=== PATIENT | male | born 1970 | race Caucasian/White ===

== ENCOUNTER 2020-03-06 16:24 | Inpatient (IN) ==
[2020-03-06] MEDS ORDERED: ASPIRIN CHEW 324 MG PO STA (16:48)
--- NOTE | 2020-03-06 16:56 | Emergency Department Note ---
History of Present Illness General Chief complaint: Referred by Doctor Stated complaint: REF BY DOC Time Seen by Provider: 03/06/20 16:36 Source: patient and family (Sina who is at the bedside) Mode of arrival: ambulatory Limitations: no limitations History of Present Illness This patient was sent over from Dr. Pham, his commercial lending vice president office after failing a stress test according to the patient. He said around 7 weeks ago he had high blood pressure was started on antihypertensives about a month or so ago he started with chest tightness with exertion and thought it could be the medication. He did follow-up with his doctor who scheduled a stress test. He said last weekend heat when he was golfing he was constantly stopping to catch his breath which is not typical for him. He tells me on a stress test there is suggestion of an LAD lesion and he was sent here to be admitted for a cath tomorrow to be done by Dr. Rizzo. The patient is asymptomatic at present. He has no chest pain or shortness of breath. He is on no blood thinners. He does not take aspirin. He has no medication allergies with exception of tetanus. He has had no trauma or injury. No COVID exposure or symptoms known. No cough or fever or body aches. Home Medications Home Medications Medication Instructions Recorded Confirmed Type ascorbic acid (vitamin C) [Vitamin 500 mg PO QAM 03/06/20 03/06/20 History C] irbesartan 150 mg PO QAM 03/06/20 03/06/20 History multivitamin 1 tab PO QAM 03/06/20 03/06/20 History omeprazole 20 mg PO QAM 03/06/20 03/06/20 History Allergies Allergy/AdvReac Type Severity Reaction Status Date / Time Tetanus Vaccines and Toxoid AdvReac redness Verified 03/06/20 17:55 Past Med/Surg History Medical History HLD (hyperlipidemia) HTN (hypertension) (Acute) Prediabetes Family History Father Hypertension Mother Breast cancer Hypertension Social History Feels Safe at Home: Yes Smoking Status: Current some day smoker Immunizations: Past medical history: Increased cholesterol and hypertension. Denies known cardiac disease or diabetes. Family history: Both parents have hypertension. No cardiac disease known in the family Social history. He smokes cigars occasionally. He drinks about 3 beers an evening. Denies drug use. 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 Review of Systems A total of 10 systems reviewed and were otherwise negative Physical Exam Vital Signs Vital Signs - 24 hr 03/06/20 16:31 03/06/20 16:50 03/06/20 17:00 Temperature 36.8 C Temperature Source Oral Pulse Rate 63 61 Pulse Rate [Apical] 63 Pulse Rate from SpO2 Sensor Respiratory Rate 17 20 Respiratory Effort / Characteristics Non-Labored Respiratory Depth Normal Blood Pressure 163/93 H 133/88 Blood Pressure [Right Arm] 153/94 H Blood Pressure Mean 116 93 Blood Pressure Mean [Right Arm] 113 Pulse Oximetry 96 97 96 Oxygen Delivery Method Room Air Room Air Sepsis Recent Fever Within 48 Hours No Sepsis New/Unexplained Change in Mental Status No Sepsis Action Taken by Nursing No Action Required 03/06/20 17:04 03/06/20 17:30 03/06/20 17:40 Temperature Temperature Source Pulse Rate 65 67 Pulse Rate [Apical] 79 Pulse Rate from SpO2 Sensor 66 Respiratory Rate 18 17 16 Respiratory Effort / Characteristics Respiratory Depth Blood Pressure 156/85 H Blood Pressure [Right Arm] 133/88 Blood Pressure Mean 103 Blood Pressure Mean [Right Arm] 103 Pulse Oximetry 96 94 97 Oxygen Delivery Method Room Air Room Air Sepsis Recent Fever Within 48 Hours Sepsis New/Unexplained Change in Mental Status Sepsis Action Taken by Nursing 03/06/20 17:50 03/06/20 18:00 03/06/20 18:12 Temperature Temperature Source Pulse Rate 59 L 60 Pulse Rate [Apical] 57 L Pulse Rate from SpO2 Sensor 58 L Respiratory Rate 20 21 18 Respiratory Effort / Characteristics Respiratory Depth Blood Pressure 141/93 H Blood Pressure [Right Arm] 141/93 H Blood Pressure Mean 100 Blood Pressure Mean [Right Arm] 109 Pulse Oximetry 96 95 97 Oxygen Delivery Method Sepsis Recent Fever Within 48 Hours Sepsis New/Unexplained Change in Mental Status Sepsis Action Taken by Nursing 03/06/20 18:30 03/06/20 18:40 Temperature Temperature Source Pulse Rate 58 L 63 Pulse Rate [Apical] Pulse Rate from SpO2 Sensor 64 Respiratory Rate 21 14 Respiratory Effort / Characteristics Respiratory Depth Blood Pressure 155/84 H Blood Pressure [Right Arm] Blood Pressure Mean 98 Blood Pressure Mean [Right Arm] Pulse Oximetry 97 Oxygen Delivery Method Sepsis Recent Fever Within 48 Hours Sepsis New/Unexplained Change in Mental Status Sepsis Action Taken by Nursing General: Well developed well nourished middle-age male who appears in no acute distress, breathing comfortably on room air. Normal speech HEENT: Normal cephalic atraumatic. Pupils are equal round and reactive to light. Sclera anicteric. Extraocular movements are intact. Oropharynx is pink with moist mucous membranes. No swelling of the mouth lips or tongue. Neck: Supple with a midline trachea. No meningeal signs or stiffness, no JVD or bruits. No Stridor. Chest: Clear to auscultation bilaterally. No wheezes or rhonchi. No increased work of breathing. Heart: Regular rate and rhythm without murmurs or gallops. Abdomen: Soft nontender, nondistended without rebound guarding or rigidity. Extremities: No cyanosis clubbing or edema. No calf tenderness or assymetry Spine/Back. Non tender to palpation. No CVA tenderness Skin: Good turgor without rashes. Neurologic exam: Cranial nerves two through 12 are intact. Motor and sensation are intact and symmetrical throughout. Course Administered Medications Discontinued Medications Aspirin (Aspirin) 324 mg PO NOW STA Stop: 03/06/20 16:49 Last Admin: 03/06/20 17:03 Dose: 324 mg Documented by: [id number] Medical Decision Making Differential Diagnosis Acute coronary syndrome, cardiac disease, arrhythmia, CHF, infection, electrolyte or metabolic abnormal Medical Records Attestation: I reviewed the patient's medical records. Home Medications Current Medication List: was personally reviewed by wa Laboratory Data Attestation: I reviewed the patient's lab results. Result diagrams: 03/06/20 16:50 03/06/20 16:50 Lab Results 03/06/20 03/06/20 03/06/20 Range/Units 16:50 16:50 16:50 WBC 9.56 (4.8-10.8) K/uL RBC 4.92 (4.7-6.1) M/uL Hgb 15.1 (14.0-18.0) g/dL Hct 43.4 (42-52) % MCV 88.2 (80-100) fL MCH 30.7 (25-34) pg MCHC 34.8 (32-36) g/dL RDW Std Deviation 41.0 (36.4-46.3) fL RDW Coeff of Jun 12.9 (11.5-14.5) % Plt Count 228 (130-400) K/uL MPV 9.6 (7.4-10.4) fL Immature Gran % (Auto) 0.3 % Neut % (Auto) 54.9 % Lymph % (Auto) 34.3 % [place] % (Auto) 7.5 % Eos % (Auto) 2.6 % Baso % (Auto) 0.4 % Neut # (Auto) 5.24 (1.4-6.5) K/uL Lymph # (Auto) 3.28 (1.2-3.4) K/uL [place] # (Auto) 0.72 H (0.11-0.59) K/uL Eos # (Auto) 0.25 (0-0.5) K/uL Baso # (Auto) 0.04 (0-0.2) K/uL Immature Gran # (Auto) 0.03 H (0.00-0.02) K/uL PT 10.7 (9.0-12.0) Seconds INR 1.0 (0.9-1.1) APTT 25.5 (21.0-31.0) Seconds PTT Ratio 0.9 Sodium 138 (136-145) mmol/L Potassium 3.9 (3.5-5.1) mmol/L Chloride 107 (98-107) mmol/L Carbon Dioxide 26 (21-32) mmol/L Anion Gap 6.0 (3-11) BUN 18 (7-18) mg/dl Creatinine 1.42 H (0.6-1.4) mg/dl Est Cr Clr Drug Dosing 78.0 ml/min Est GFR ( Amer) 65.8 Est GFR (Non-Af Amer) 56.8 BUN/Creatinine Ratio 12.4 (10-20) Glucose 100 H (70-99) mg/dl Calcium 8.9 (8.5-10.1) mg/dl Total Bilirubin 0.4 (0.2-1) mg/dl AST 35 (15-37) U/L ALT 97 H (12-78) U/L Alkaline Phosphatase 66 (45-117) U/L Troponin I 0.045 (0-0.045) ng/ml Total Protein 7.9 (6.4-8.2) gm/dl Albumin 3.9 (3.4-5.0) gm/dl Globulin 4.0 (2.5-4.0) gm/dl Albumin/Globulin Ratio 1.0 (0.9-2) Lipase 156 (73-393) U/L Imaging Data Attestation: I personally reviewed and interpreted this imaging study as follows: Radiologist's Impression: XR chest 1V portable CLINICAL HISTORY: Atypical chest pain. Preop chest. COMPARISON STUDY: No previous studies for comparison. FINDINGS: The cardiac and mediastinal contours are normal. There is no evidence of focal pulmonary consolidation. There is no evidence of failure. No pleural effusions are visualized.[ IMPRESSION: No active disease in the chest. ECG Data Attestation: I personally reviewed and interpreted this ECG as follows: Indication: + chest pain Rate (beats per minute): 64 Rhythm: + normal sinus ECG Intervals/blocks: + Normal QRS, + Normal QT and + Normal PA ECG [place]: + Normal ECG ST segments: + Normal ST segments ECG Findings: no PACs and no PVCs Comparison ECG Date: no prior available Blood Pressure Blood Pressure Findings: Elevated blood pressure Blood Pressure Disposition: elevated BP felt to be situational MDM Narrative This patient was sent over from the commercial lending vice president office after having a positive stress test, he was sent here for admission. He is asymptomatic upon arrival and is stable vital signs. His EKG here shows no ischemic changes or ectopy with no old ones for available for comparison. he was given aspirin 324 mg chewable. Chest x-ray and multiple blood testing was obtained. Chest x-ray does not suggest congestive heart failure, pneumonia, or pneumothorax. His troponin is not elevated. He has no significant electrolyte or metabolic abnormalities with exception of creatinine is borderline at 1.4. He has remained stable. Dr. Rene Rizzo did see him in the emergency department and he will be admitted/observed to have cardiac catheterization done tomorrow. Continuous cardiac monitoring: An order was placed in the computer. Due to his cardiac history he was placed on a continuous department director and was noted to be in normal sinus rhythm with a rate of 63. Impression & Plan Crescendo angina, Abnormal stress echocardiography, HTN (hypertension), Chest pain Discharge Plan Visit Data Chief Complaint: Referred by Doctor Stated Complaint: REF BY DOC ED Provider: Vernon Quintanilla Discharge Problem: Crescendo angina, Abnormal stress echocardiography, HTN (hypertension), Chest pain Forms Stand Alone Forms: [facility] [employer] Prescriptions Prescriptions: No Action irbesartan 150 mg Tablet 150 mg PO QAM RF: 0 omeprazole 20 mg Capsule,Delayed Release(Dr/Ec) 20 mg PO QAM RF: 0 ascorbic acid (vitamin C) [Vitamin C] 500 mg Tablet,Chewable 500 mg PO QAM RF: 0 multivitamin Tablet,Chewable 1 tab PO QAM RF: 0 Discharge Problem: HTN (hypertension) Qualifiers: Hypertension type: unspecified Qualified Code(s): I10 - Essential (primary) hypertension Chest pain Qualifiers: Chest pain type: other chest pain Qualified Code(s): R07.89 - Other chest pain
[2020-03-06 17:02] LABS: Basophils # (auto) 0.04 K/uL (0-0.2); Basophils % (auto) 0.4 %; Eosinophils # (auto) 0.25 K/uL (0-0.5); Eosinophils % (auto) 2.6 %; Hematocrit (blood only) 43.4 % (42-52); Hemoglobin 15.1 g/dL (14.0-18.0); Immature Granulocytes # (auto) 0.03 K/uL (0.00-0.02); Immature Granulocytes % (auto) 0.3 %; Lymphocytes # (auto) 3.28 K/uL (1.2-3.4); Lymphocytes % (auto) 34.3 %; Mean Corpuscular Hemoglobin 30.7 pg (25-34); Mean Corpuscular Hgb Conc 34.8 g/dL (32-36); Mean Corpuscular Volume 88.2 fL (80-100); Mean Platelet Volume 9.6 fL (7.4-10.4); Monocytes # (auto) 0.72 K/uL (0.11-0.59); Monocytes % (auto) 7.5 %; Neutrophils # (auto) 5.24 K/uL (1.4-6.5); Neutrophils % (auto) 54.9 %; Platelet Count 228 K/uL (130-400); RDW Coefficient of Variation 12.9 % (11.5-14.5); Red Blood Count 4.92 M/uL (4.7-6.1); White Blood Count 9.56 K/uL (4.8-10.8)
[2020-03-06 17:13] LABS: Partial Thromboplastin Ratio 0.9; Partial Thromboplastin Time 25.5 Seconds (21.0-31.0); Prothrombin Time 10.7 Seconds (9.0-12.0)
[2020-03-06 17:18] LABS: Albumin Level 3.9 gm/dl (3.4-5.0); BUN Creatinine Ratio 12.4 (10-20); Calcium 8.9 mg/dl (8.5-10.1); Est GFR (African American) 65.8; Est GFR (Non-African American) 56.8; Potassium 3.9 mmol/L (3.5-5.1)
[2020-03-06 17:22] LABS: Bilirubin,Total 0.4 mg/dl (0.2-1); Total Protein 7.9 gm/dl (6.4-8.2); Troponin I 0.045 ng/ml (0-0.045)
--- NOTE | 2020-03-06 17:33 | XRay Report ---
XR chest 1V portable CLINICAL HISTORY: Atypical chest pain. Preop chest. COMPARISON STUDY: No previous studies for comparison. FINDINGS: The cardiac and mediastinal contours are normal. There is no evidence of focal pulmonary co nsolidation. There is no evidence of failure. No pleural effusions are visualized.[ IMPRESSION: No active disease in the chest. ACT 112: Negative or not required by law. Electronically signed by: Marcus Sosa M.D. 03/06/2020 5:32 PM
--- NOTE | 2020-03-06 17:50 | Cardiology Consultation ---
Date of Consultation March 06, 2020 Assessment & Plan (1) Abnormal stress echocardiography: (2) Crescendo angina: (3) HTN (hypertension): (4) Prediabetes: Please see outpatient consult on chart for Dr. Pham. Patient referred with symptoms consistent with crescendo angina and abnormal st ress testing. Currently asymptomatic at rest and no prior rest symptom . EKG normal Plan: Patient scheduled for diagnostic cardiac catheterization in a.m. Aspirin administered. Procedure and risks explained in detail to the patient informed consent will be obtained. IV hydration ordered to be given at midnight History of Present Illness Reason for Consultation: Abnormal stress test crescendo chest discomfort History of Present Illness Patient is a 49-year-old male with issues as follows 1. Unstable angina with a markedly positive exercise stress echocardiogram for ischemia in the LAD territory 03/06/2020 2. Uncontrolled hypertension 3. Dyslipidemia 4. Prediabetes Patient carries no prior history of cardiac disease but recently presented with symptoms of exertional chest pressure and pain in subset was referred for stress testing. He notes exercise capacity is dramatically decreased over the past several weeks. Stress test was positive for stress-induced ischemia in LAD distribution at modest level workload with reproduction of symptoms. Blood pressure response was markedly hypertensive Patient referred for anticipated cardiac catheterization in a.m. He denies prior history of myocardial infarction or congestive heart failure no history of valvular heart disease. No history of TIA or stroke. No difficulties with sedation or anesthesia in the past. No difficulty with swallowing or taking medications. No bleeding difficulties. No anticipated surgeries. No fevers chills cough. No unexplained infections. Weight and appetite are generally stable Allergies Allergy/AdvReac Type Severity Reaction Status Date / Time Tetanus Vaccines and Toxoid AdvReac redness Verified 03/06/20 17:37 Home Medications Home Medications Medication Instructions Recorded Confirmed Type irbesartan 150 mg PO DAILY 03/06/20 03/06/20 History omeprazole 20 mg PO DAILY 03/06/20 03/06/20 History Patient History Social History Feels Safe at Home: Yes Smoking Status: Current some day smoker Physical Exam Constitutional: WD/WN, vitals as above Eyes: PERRL, conjunctivae normal, anicteric sclerae ENMT: external ear and nose normal, oropharynx normal Neck: trachea midline, no thyromegaly Respiratory: normal respiratory effort, lungs clear to auscultation Cardiovascular: Rate/Rhythm: regular rate and regular rhythm Heart Sounds: normal S1 and normal S2; no gallop and no murmur Palpation: normal PMI Vessels: normal carotid upstroke and radial pulses present; no JVD and no carotid bruit Extremities: no edema Gastrointestinal (Abdomen): normal bowel sounds, soft, nontender, no hepatosplenomegaly Musculoskeletal: no cyanosis or clubbing, extremities motor strength 5/5 Skin: no rashes, warm and dry Neurologic: PERRL, EOMI, accommodation nl, no face palsy, no dysarthria Psychiatric: A+Ox3, euthymic affect Results & Data ([facility]) Vital Signs (Past 12 Hours) Vital Signs Temp Pulse Pulse Resp BP BP Pulse Ox 03/06/20 17:04 79 18 133/88 96 03/06/20 16:50 63 153/94 H 97 03/06/20 16:31 36.8 C 63 17 163/93 H 96 Diagnostic Findings Stress echocardiography 03/06/2020 The primary indication after review was deemed appropriate and the examination was performed. The stress echo is positive for inducible ischemia. No inducible arrhythmias. Testing halted due to reproduction of chest pain 01/29. Inducible hypokinesis in the LAD territory on stress. Hypertensive blood pressure response to exercise. Below average exercise tolerance. At rest, normal LV chamber size with mild concentric LVH. Normal LV systolic function without regional wall motion abnormality, EF 55 to 60%. Grade 1 diastolic dysfunction. No significant valvular pathology. The aortic root is normal sized. The proximal ascending thoracic aorta is mildly enlarged.
--- NOTE | 2020-03-06 19:00 | History & Physical Report ---
Date of Service March 06, 2020 Assessment & Plan (1) Abnormal stress echocardiography: (2) Crescendo angina: This is a 49-year-old male who has significant past medical history of HTN, HLD and pre-DM who presents to ED at the referral of cardiology Dr. Pham due to abnormal stress echo. Pt received 325mg ASA in ED. EKG w/o ischemic change. Trop detectable at 0.045. Seen and evaluated by cardiology. To undergo diagnostic cath in am. admit to PCU NPO after midnight monitor on tele initiate ASA 81mg, atorvastatin 80mg daily and metoprolol tartrate 25mg bid per Dr. Pham outpt consultation cardiology on board ekg prn with chest pain Covid 19 pre op testing ordered (3) HTN (hypertension): blood pressure mildly elevated in ED continue irbesartan (4) Elevated serum creatinine: unknown baseline bun/cr 18 and 1.42 today IV hydration monitor bmp (5) Prediabetes: Last A1C 5.8 02/27/2020 encourage lifestyle and diet modifications glucose 100, monitor fasting bsg (6) DVT prophylaxis: SCD/TEDS Disposition: admit to PCU Follow up: PCP Dr. Berry upon discharge Pt was seen and examined in collaboration with Dr. Dougherty, please see addendum History of Present Illness Chief Complaint: Referred by Dr. Pham due to abnormal stress test. Primary Care Provider: Cristopher Pham, This is a 49-year-old male who has significant past medical history of HTN, HLD and pre-DM who presents to ED at the referral of cardiology Dr. Pham due to abnormal stress echo. Patient was seen and evaluated in cardiology clinic today and underwent stress testing. He developed anginal symptoms at 4 minutes Sorin protocol and echocardiogram revealed ischemia in LAD territory. He was referred to ED for admission for planned cardiac catheterization in a.m. for diagnostic purposes. He states over the last 3 to 4 weeks he has noticed exertional chest discomfort and shortness of breath. Chest discomfort is substernal, nonradiating, resolves with rest within approximately 10 minutes, made worse with exertion. He states last week he was golfing and even used a golf cart and even minimal exertion on the golf course caused him to feel discomfort. [place]it [place] family history of hypertension but denies any premature coronary artery disease for heart disease in family. He currently denies any fever, chills, sweats, lightheadedness, dizziness, syncope, chest pain, shortness, palpitations, nausea, vomiting, abdominal pain, change in bowel or urinary habits. He denies any known exposure to COVID-19 denies any loss of taste or smell. His fiance is at bedside. They were to get in 1 week in [place]. In ED patient remained hemodynamically stable. EKG was without ischemic change. Blood pressure 155/84. CBC relatively unremarkable, CMP revealed mildly elevated creatinine 1.42, glucose 100, ALT 97, troponin detectable at 0.045. Chest x-ray with no acute abnormality. He did receive ASA 325 in ED. Allergies Allergy/AdvReac Type Severity Reaction Status Date / Time Tetanus Vaccines and Toxoid AdvReac redness Verified 03/06/20 17:55 Home Medications Home Medications Medication Instructions Recorded Confirmed Type ascorbic acid (vitamin C) [Vitamin 500 mg PO QAM 03/06/20 03/06/20 History C] irbesartan 150 mg PO QAM 03/06/20 03/06/20 History multivitamin 1 tab PO QAM 03/06/20 03/06/20 History omeprazole 20 mg PO QAM 03/06/20 03/06/20 History Past Med/Surg History Medical History HLD (hyperlipidemia) HTN (hypertension) (Acute) Prediabetes Surgical History (Updated 03/06/20 @ 18:59 by Palmira Durham PA-C) History of ankle surgery right History of repair of rotator cuff Family History Father Hypertension Mother Breast cancer Hypertension Social History Preferred Language: Bahraini Communication Ability: Effective Beliefs That Will Affect Care: None marital status: Current Living Situation: Spouse current occupational status: employed Other Information That Helps Us Care for You: No Feels Safe at Home: Yes Safety Concerns: Feels Safe At This Time Smoking Status: Light tobacco smoker Tobacco Type: cigars ; Cigarettes Per Day: smokes cigar few times a week ; Second Hand Exposure: No ; Tobacco Cessation Education Requested by Patient: No Hx Alcohol Use: Yes Alcohol type: beer Hx Substance Use: No Review of Systems Review of Systems: All systems reviewed & are unremarkable except as noted in HPI & below Physical Exam Physical Exam: Constitutional: WD/WN, vitals as above, NAD, sitting up in bed, pleasant, conversing easily Head: Normocephalic, Atraumatic Eyes: PERRL, conjunctivae normal, anicteric sclerae ENMT: external ear and nose normal, oropharynx normal Neck: trachea midline, no thyromegaly normal visual inspection Respiratory: normal respiratory effort, lungs clear to auscultation, no wheeze, rales, rhonchi. Normal insp/exp effort, no accessory muscle use Cardiovascular: RRR, no murmur, no edema Vessels: no JVD or carotid bruit Chest: normal inspection of chest Abdomen: normal bowel sounds, soft, nontender, no hepatosplenomegaly Musculoskeletal: no cyanosis or clubbing, extremities motor strength 5/5 Skin: no rashes, warm and dry normal turgor Neurologic: PERRL, EOMI, accommodation nl, no face palsy, no dysarthria CN's II-XI intact bilaterally and moves all extremities Psychiatric: A+Ox3, euthymic affect Lymphatic: no cervical or axillary lymphadenopathy : deferred Results & Data Results & Data ([facility]) Vital Signs (Past 12 Hours) Vital Signs Temp Pulse Pulse Resp BP BP Pulse Ox 03/06/20 18:40 63 14 97 03/06/20 18:30 58 L 21 155/84 H 03/06/20 18:12 57 L 18 141/93 H 97 03/06/20 18:00 60 21 141/93 H 95 03/06/20 17:50 59 L 20 96 03/06/20 17:40 67 16 97 03/06/20 17:30 65 17 156/85 H 94 03/06/20 17:04 79 18 133/88 96 03/06/20 17:00 61 20 133/88 96 03/06/20 16:50 63 153/94 H 97 03/06/20 16:31 36.8 C 63 17 163/93 H 96 Laboratory Results Short CBC 03/06/20 03/06/20 Range/Units 16:50 16:50 WBC 9.56 (4.8-10.8) K/uL Hgb 15.1 (14.0-18.0) g/dL Hct 43.4 (42-52) % Plt Count 228 (130-400) K/uL Creatinine 1.42 H (0.6-1.4) mg/dl BMP 03/06/20 16:50 Sodium 138 Potassium 3.9 Chloride 107 Carbon Dioxide 26 BUN 18 Creatinine 1.42 H Glucose 100 H Calcium 8.9 Cardiac Enzymes 03/06/20 Range/Units 16:50 Troponin I 0.045 (0-0.045) ng/ml Liver Function 03/06/20 Range/Units 16:50 Total Bilirubin 0.4 (0.2-1) mg/dl AST 35 (15-37) U/L ALT 97 H (12-78) U/L Alkaline Phosphatase 66 (45-117) U/L Albumin 3.9 (3.4-5.0) gm/dl Diagnostic Findings CXR: IMPRESSION: No active disease in the chest. Medications Administered Discontinued Medications Aspirin (Aspirin) 324 mg PO NOW STA Stop: 03/06/20 16:49 Last Admin: 03/06/20 17:03 Dose: 324 mg Documented by: [id number] ECG Rate (beats per minute): 64 Rhythm: normal sinus Code Status & VTE Plan Code Status Full Code VTE Prophylaxis Plan VTE Prophylaxis will be ordered: Yes Supervising Physician Co-Signing Physician Notes Patient is a 49-year-old male with history of uncontrolled hypertension, predi abetes, hyperlipidemia and other medical problems presents after having an abnormal stress test by his security and privacy consultant today. Patient currently denies any chest pain, shortness of breath, dizziness, nausea. He states having chest pain associated with shortness of breath on exertion. His initial troponins are negative. Please review HPI for complete details of presentation. On exam patient is well-built and nourished, no apparent distress, normocephalic atraumatic, lungs are clear to auscultation, S1-S2, no murmur, abdomen soft, nontender, normal bowel sounds, grossly no focal neurological deficits, trace pedal edema noted. Patient is admitted for management of angina, r/o acs. Plan for cardiac catheterization in the morning. Agree with aspirin, Lipitor, metoprolol. Cardiology consulted. Blood pressure remains elevated--usual as per patient. Need to adjust medications to control blood pressure. Monitor renal function. I personally reviewed the record. Patient is interviewed and examined at bedside. Patient's care is coordinated with Palmira Durham PA-C. Please refer to the documentation above for details of patient's presentation and for discussion of other issues. (1) HTN (hypertension) Hypertension type: unspecified Qualified Code(s): I10 - Essential (primary) hypertension
[2020-03-06] MEDS ORDERED: ACETAMINOPHEN 325 MG TAB PO PRN (19:31)
[2020-03-06] MEDS ORDERED: MAGNESIUM HYDROXIDE SUSP 30 ML UDC PO PRN (19:31)
[2020-03-06] MEDS ORDERED: POLYETHYLENE (MIRALAX) 17 GM PACK PO PRN (19:31)
[2020-03-06] MEDS ORDERED: ONDANSETRON INJ 2 MG/ML 2 ML VIAL IV PRN (19:31)
[2020-03-06] MEDS ORDERED: NITROGLYCERIN SL 0.4 MG/TAB TAB SL PRN (19:31)
[2020-03-06] MEDS ORDERED: ALUMINUM/MAGNESIUM SUSP 30 ML UDC PO PRN (19:31)
[2020-03-06] MEDS ORDERED: SODIUM CHLORIDE 0.9% 1000ML 1,000 ML IV SCH (19:31)
[2020-03-06] MEDS: METOPROLOL TARTRATE 25 MG TAB PO SCH (21:03)
[2020-03-06] MEDS: HEPARIN SOD 5,000 UNIT/0.5 ML VIAL SQ SCH (22:57)
[2020-03-07] MEDS ORDERED: SODIUM CHLORIDE 0.9% 1000ML 1,000 ML IV SCH ×2
[2020-03-07 04:59] LABS: Hematocrit (blood only) 41.2 % (42-52); Hemoglobin 14.4 g/dL (14.0-18.0); Mean Corpuscular Hemoglobin 31.2 pg (25-34); Mean Corpuscular Volume 89.2 fL (80-100); Mean Platelet Volume 9.9 fL (7.4-10.4); Platelet Count 204 K/uL (130-400); RDW Coefficient of Variation 12.9 % (11.5-14.5); RDW Standard Deviation 41.6 fL (36.4-46.3); Red Blood Count 4.62 M/uL (4.7-6.1); White Blood Count 9.08 K/uL (4.8-10.8)
[2020-03-07 05:20] LABS: Alanine Aminotransferase 83 U/L (12-78); Albumin Level 3.4 gm/dl (3.4-5.0); Aspartate Aminotransferase 28 U/L (15-37); BUN Creatinine Ratio 13.6 (10-20); Blood Urea Nitrogen 18 mg/dl (7-18); Calcium 8.6 mg/dl (8.5-10.1); Carbon Dioxide 29 mmol/L (21-32); Chloride 110 mmol/L (98-107); Creatinine Clr Calc Pharmacy 82.8 ml/min; Est GFR (African American) 72.5; Est GFR (Non-African American) 62.6; Glucose 93 mg/dl (70-99); Magnesium 2.4 mg/dl (1.8-2.4); Potassium 4.2 mmol/L (3.5-5.1); Sodium 143 mmol/L (136-145)
[2020-03-07 05:23] LABS: Albumin Globulin Ratio 0.9 (0.9-2); Alkaline Phosphatase 58 U/L (45-117); Bilirubin,Total 0.4 mg/dl (0.2-1); Chol HDL Ratio 7; Cholesterol 184 mg/dl (0-200); Globulin 3.6 gm/dl (2.5-4.0); HDL Cholesterol 27 mg/dl; LDL Cholesterol Calculated 82 mg/dl; Triglycerides 374 mg/dl (0-150); Troponin I < 0.015 ng/ml (0-0.045); VLDL Cholesterol 75 mg/dl
[2020-03-07] MEDS: HEPARIN SOD 5,000 UNIT/0.5 ML VIAL SQ SCH ×2 (05:58→14:59)
[2020-03-07 06:18] LABS: Estimated Average Glucose 117 mg/dl; Hemoglobin A1C 5.7 % (4.5-5.6)
[2020-03-07] MEDS: ATORVASTATIN 40 MG TAB PO SCH (08:23)
[2020-03-07] MEDS: PANTOprazole 40 MG TAB PO SCH (08:23)
[2020-03-07] MEDS: ASPIRIN 81 MG ECTAB PO SCH (08:23)
[2020-03-07] MEDS: METOPROLOL TARTRATE 25 MG TAB PO SCH ×2 (08:23→19:41)
[2020-03-07] MEDS ORDERED: IRBESARTAN 150 MG TAB PO SCH (09:00)
[2020-03-07] MEDS ORDERED: NiCARDipine HCL INJ 2.5 MG/ML 10 ML AMP ONE (10:04)
[2020-03-07] MEDS ORDERED: HEPARIN (PORCINE) 1000 UNIT/ML 10 ML (CATH LAB USE ONLY) ONE ×2 (10:04→11:10)
[2020-03-07] MEDS ORDERED: MIDAZOLAM HCL 1 MG/ML 2ML VIAL ONE ×2 (10:05→10:51)
[2020-03-07] MEDS ORDERED: NITROGLYCERIN/D5W 100MCG/ML 20ML SYR ONE (10:05)
[2020-03-07] MEDS ORDERED: fentaNYL citrate 100 MCG/2 ML VIAL ONE (10:05)
--- NOTE | 2020-03-07 11:03 | Pre Anesthesia Assessment ---
Date of Service March 07, 2020 Pre Sedation Assessment Vital Signs Temp Pulse Pulse Resp BP BP Pulse Ox 03/07/20 09:30 53 L 14 03/07/20 09:00 57 L 17 03/07/20 08:30 61 11 L 03/07/20 08:02 59 L 11 L 160/88 H 99 03/07/20 08:00 59 L 12 03/07/20 07:30 53 L 4 L 03/07/20 07:00 50 L 0 L 03/07/20 06:45 54 L 4 L 03/07/20 04:00 36.7 C 51 L 17 148/88 H 96 03/07/20 00:00 53 L 03/06/20 23:06 37 C 61 17 158/86 H 99 03/06/20 19:30 37 C 56 L 16 160/101 H 96 03/06/20 19:00 69 20 138/96 03/06/20 18:40 63 14 97 03/06/20 18:30 58 L 21 155/84 H 03/06/20 18:12 57 L 18 141/93 H 97 03/06/20 18:00 60 21 141/93 H 95 03/06/20 17:50 59 L 20 96 03/06/20 17:40 67 16 97 03/06/20 17:30 65 17 156/85 H 94 03/06/20 17:04 79 18 133/88 96 03/06/20 17:00 61 20 133/88 96 03/06/20 16:50 63 153/94 H 97 03/06/20 16:31 36.8 C 63 17 163/93 H 96 Cardiovascular RRR, no murmur, no edema Respiratory normal respiratory effort, lungs clear to auscultation Pre-Sedation Airway Assessment Smoking Status: Light tobacco smoker Hx Sleep Apnea: No Short, Thick Neck: No Oral Cavity: + WNL Mallampati Class: IV ASA: ASA3 NPO Status Date of Last Intake of Fluids: 03/07/20 Time of Last Intake of Fluids: 08:00 Last Oral Intake of Fluids Comment: sip with meds Date of Last Intake of Solid Food: 03/06/20 Time of Last Intake of Solid Foods: 18:00 Procedure Planning Contraindications for Sedation: none Current Medications Reviewed: Yes Notes The planned sedation has been discussed with the patient. Informed Consent was obtained. I have identified the patient, determined the appropriateness of sedation and have assessed the patient immediately prior to the procedure. All medicine(s) and interventions are by my order.
--- NOTE | 2020-03-07 11:12 | Cardiac Catheterization ---
Cardiac Cath Procedure Brief Procedure Date March 07, 2020 Pre-Procedure Diagnosis Pre-Procedure Diagnosis: Angina and Positive Stress Test AUC Score AUC Score: 8 Post-Procedure Diagnosis Post-Procedure Diagnosis: Severe CAD (Single-vessel) Procedure(s) Performed Procedure(s) Performed: Coronary Angiography and Left Heart Cath Slubber Machine Operator Rene Rizzo MD Estimated Blood Loss Estimated Blood Loss: <15cc Medication(s) Medication(s): Fentanyl (25 mcg IV), Heparin (5000 units IV), Lidocaine 1% (Local infiltration access site), Nicardipine (250 mcg intra-arterial after arterial sheath insertion) and Versed (1 mg IV) Preliminary Findings Impression: Right dominant coronary anatomy with single-vessel high-grade obstructive disease with complex 90% early mid LAD stenosis Coronary angiography Left main: Very Short and free of disease and calcification Left anterior descending: Type III in distribution giving rise to an early high diagonal branch, a large septal branch followed by a second diagonal branch at the end of its proximal third. Within the left understanding there is a discrete ulcerated 90% stenosis between the first and second diagonal branch with a 50% narrowing between the septal branch and second. Left circumflex: Nondominant consisting of a large obtuse marginal small posterior lateral branch. There is mild to moderate luminal irregularities only Right coronary artery: Dominant distribution. It gives rise to a sinoatrial branch at its origin to right ventricular branches in its midportion at the AV groove along posterior descending artery and a single posterior ventricular branch. There is mild luminal irregularities. Overall caliber of right coronary distribution is modest but no obstruction noted. LV angiography: Not performed. Hemodynamics LV EDP 24 Recommendations Recommendations: PCI without planned CABG Specimens Specimens: None Fluids (cc crystalloids) Fluids (cc crystalloids): 63 Anesthesia Start time: 1021, stop time 1048 Procedural Complication(s) None Disposition PCI same setting
[2020-03-07] MEDS ORDERED: TICAGRELOR 90 MG TAB PO ONE (11:18)
--- NOTE | 2020-03-07 11:20 | Post Anesthesia Assessment ---
Date of Service March 07, 2020 Post Sedation Assessment Vital Signs Temp Pulse Pulse Resp BP BP Pulse Ox 03/07/20 09:30 53 L 14 03/07/20 09:00 57 L 17 03/07/20 08:30 61 11 L 03/07/20 08:02 59 L 11 L 160/88 H 99 03/07/20 08:00 59 L 12 03/07/20 07:30 53 L 4 L 03/07/20 07:00 50 L 0 L 03/07/20 06:45 54 L 4 L 03/07/20 04:00 98.1 F 51 L 17 148/88 H 96 03/07/20 00:00 53 L 03/06/20 23:06 98.6 F 61 17 158/86 H 99 03/06/20 19:30 98.6 F 56 L 16 160/101 H 96 03/06/20 19:00 69 20 138/96 03/06/20 18:40 63 14 97 03/06/20 18:30 58 L 21 155/84 H 03/06/20 18:12 57 L 18 141/93 H 97 03/06/20 18:00 60 21 141/93 H 95 03/06/20 17:50 59 L 20 96 03/06/20 17:40 67 16 97 03/06/20 17:30 65 17 156/85 H 94 03/06/20 17:04 79 18 133/88 96 03/06/20 17:00 61 20 133/88 96 03/06/20 16:50 63 153/94 H 97 03/06/20 16:31 98.2 F 63 17 163/93 H 96 Recovery Score Activity: Moves 4 extremities Respiration: Deep Breath/Cough Circulation: +/-20% PreAnes Value Consciousness: Fully Awake Oxygen Saturation: O2 needed for >90% Discharge Sedation Level of Care: Fast Track Phase II Post Sedation Plan On clinical assessment, the patient appears to have tolerated the sedation without complications. Patient is recovering as anticipated. Patient will continue to be monitored by nursing and may be discharged when sedation discharge criteria are met per below protocol. Upon Completions of procedure up to 15 minutes continue every 5 minute vital signs and the P.A.R. score; then discharge to a Phase I or Fast Track to Phase II per the following guidelines: * Discharge Patient to appropriate Phase II area if PAR is 8 or greater or return to pre- procedure baseline. The post - procedure orders will be as directed. * If PAR score is less than 8 or not return to pre-procedure baseline then patient will follow Phase I monitoring till PAR is reached for Phase II. The Phase I may be done in procedure room or may call to secure a Phase I area. * If naloxone or flumazenil are used for reversal, hold in Phase I for continued monitoring from when last reversal dose was given for a minimum of 60 minutes or longer pending the nurse and/or physician discretion of patient condition before discharge to Phase II. Please call the Sedation Physician to re-evaluate and complete post-note for discharge to Phase II area. Do NOT discharge from procedure sedation or Phase 1 until post- sedation evaluation note is complete by procedure /sedation MD Sedation Discharge Instructions to be given to the patient at discharge to home.
--- NOTE | 2020-03-07 11:27 | Cardiac Catheterization ---
[facility] Data: Dish Machine Operator Cardiac Status Clinical evaluation leading to the procedure CAD Presenation: Unstable angina Anginal Classification: CCS III Heart Failure: No Cardiogenic Shock within 24 Hours: No Cardiac Arrest within 24 Hours: No Imaging Studies Past 6 Months: Yes Stress Studies Past 6 Months: Yes Stress Echocardiogram: Yes - Positive and Risk/Extent of Ischemia (High) Diagnostic Physicians Name: Zeke De Oliveira MD Status: Elective Closure Device Percutaneous Entry Location: Radial Closure Device: Radial Band Recommendations: PCI without planned CABG PCI Indication: + Stress Test and Unstable Angina Lesion Segment Name: Mid LAD Culprit Artery: Yes Stenosis Prior to Rx (%): 90 Chronic Total Occlusion: No IVUS: No FFR: No Pre-Procedure TAYA Flow: 3 Previously Treated Lesion: No Lesion Complexity: Non-High/Non-C Lesion Length (mm): 20 Thrombus Present: Yes Bifurcation Lesion: Yes Guidewire Across Lesion: Stenosis Post-Procedure (%): 0 Post-Procedure TAYA Flow: 3 Devices(s) Deployed: Yes Yes Intraprocedure Events Significant Disection: No Perforation: No Cardiac Cath Procedure Full Procedure Date March 07, 2020 Pre-Procedure Diagnosis Pre-Procedure Diagnosis: Acute Coronary Syndrome and Positive Stress Test AUC Score AUC Score: 8 Post-Procedure Diagnosis Post-Procedure Diagnosis: Severe CAD (Single-vessel) and Successful PCI Procedure(s) Performed Procedure(s) Performed: Drug Eluting Stent Block Feeder Zeke De Oliveira MD Digester(s) Nils Estimated Blood Loss Estimated Blood Loss: <15cc Medication(s) Medication(s): Fentanyl (25 mcg IV), Heparin (5000 units IV), Nicardipine (250 mcg intra-arterial after arterial sheath insertion), Nitroglycerin and Versed (1 mg IV) Medication(s): Ticagrelor Summary of Findings Indication: Unstable angina, high risk stress test Access: 6 Fr slender right radial artery Catheters: EBU 3.5 guide Findings: For full details of patient's coronary angiography please see cath report dictated by Dr. Rizzo. Briefly, patient found to have severe single vessel disease with diffuse, acute mid LAD disease up to 90% stenosis. Decision to proceed with PCI. -- PCI -- Antithrombotic therapy: Heparin, ticagrelor Procedure: Left main cannulated with EBU 3.5 guide BMW wire passed across lesion into distal vessel Mid LAD lesion predilated with 2.5 compliant balloon Dilated lesion stented with 3.0 x 30 mm [place] drug-eluting stent. Proximal stent landed just after takeoff of first diagonal and stent crossed takeoff of second diagonal. Stent post-dilated with 3.25 noncompliant balloon IC vasodilators administered for spasm Post procedure TAYA 3 flow, stent well expanded with minimal residual stenosis and no apparent cardiac complications. Arterial Closure: TR band Summary: 1. Successful PCI of mid LAD with single drug-eluting stent (3.0 x 30 mm [place]; postdilated with 3.25 NC). Recommendations: To PCU for continued monitoring Loaded with ticagrelor 180 mg in Dish Machine Operator Continue dual-antiplatelet therapy for at least 1 year Continue statin, and ASCVD risk factor modification Consult cardiac Rehab Hemodynamics Rest Ao:: 134/80/102 Final Ao: 104/67/91 LV: -- Recommendations Recommendations: PCI without planned CABG Specimens Specimens: None Radiation Exposure (mGy) 2634 Contrast (mls) 125 Fluids (cc crystalloids) Fluids (cc crystalloids): 100 Drains Drains: None Anesthesia Moderate Procedural Complication(s) None Disposition PCU I attest to the content of the Intraoperative Record and any orders documented therein. Any exceptions are noted below. [facility] Card Cath Procedure Codes Moderate Sedation Procedure 1: Sedation/Anesthesia: 41554 Mod Sedation by a different physician ;Init15 Min Child Age 5&Up Stenting Procedure 1: Cardiovascular Stent Procedures: 78426 Perc transcatheter placement of intracoronary stent(s), with ang PG Care Time/CCT Total # of Minutes Spent Total Time Spent with Patient: Total time spent is greater than 50% in coordination of care (as documented) at patient's floor/unit and/or counseling patient:
[2020-03-07] MEDS: SODIUM CHLORIDE 0.9% 1000ML 1,000 ML IV SCH ×2 (12:40→23:37)
--- NOTE | 2020-03-07 12:45 | Cardiology Progress Note ---
Date of Service March 07, 2020 Assessment & Plan (1) Single vessel coronary disease: Status post drug-eluting stent to left anterior descending with excellent initial result Dual antiplatelet therapy initiated with aspirin and Brilinta Would continue low-dose beta-esme Increase Avapro to 300 mg p.o. daily for further hypertension control Low HDL dyslipidemia present with treat with high-dose statin Discontinue tobacco use Patient would qualify for cardiac rehab We will maintain telemetry overnight (2) Abnormal stress echocardiography: (3) Crescendo angina: (4) HTN (hypertension): (5) Prediabetes: Please see outpatient consult on chart for Dr. Pham. Patient referred with symptoms consistent with crescendo angina and abnormal stress testing. Currently asymptomatic at rest and no prior rest symptom . EKG normal Plan: Patient scheduled for diagnostic cardiac catheterization in a.m. Aspirin administered. Procedure and risks explained in detail to the patient informed consent will be obtained. IV hydration ordered to be given at midnight Subjective Patient seen and examined both pre-and post cardiac catheterization. No cardiac symptoms overnight and tolerated cardiac catheterization and coronary intervention without difficulty. No current chest pains or discomfort. Blood pressures elevated since admission Review of Systems Review of Systems: All systems reviewed & are unremarkable except as noted in HPI & below Physical Exam Constitutional: WD/WN, vitals as above Eyes: PERRL, conjunctivae normal, anicteric sclerae ENMT: Mallampati Class: IV Neck: trachea midline, no thyromegaly Respiratory: normal respiratory effort, lungs clear to auscultation Cardiovascular: RRR, no murmur, no edema Rate/Rhythm: regular rate and regular rhythm Heart Sounds: normal S1 and normal S2; no gallop and no murmur Palpation: normal PMI Vessels: normal carotid upstroke and radial pulses present (Right radial access site healing well); no JVD and no carotid bruit Extremities: no edema Gastrointestinal (Abdomen): normal bowel sounds, soft, nontender, no hep atosplenomegaly Musculoskeletal: no cyanosis or clubbing, extremities motor strength 5/5 Skin: no rashes, warm and dry Neurologic: PERRL, EOMI, accommodation nl, no face palsy, no dysarthria Psychiatric: A+Ox3, euthymic affect Results & Data Vital Signs (Past 12 Hours) Vital Signs Temp Pulse Pulse Resp BP BP BP 03/07/20 12:32 60 16 165/96 H 03/07/20 12:30 62 13 03/07/20 12:27 66 20 165/96 H 03/07/20 12:15 65 20 03/07/20 12:11 64 16 129/88 03/07/20 12:08 36.9 C 136 H 18 136/85 03/07/20 12:00 56 L 13 03/07/20 11:56 59 L 19 136/85 03/07/20 11:51 58 L 19 137/85 03/07/20 11:40 56 L 18 03/07/20 11:25 54 L 18 140/81 03/07/20 09:45 55 L 18 03/07/20 09:30 53 L 14 03/07/20 09:00 57 L 17 03/07/20 08:30 61 11 L 03/07/20 08:02 59 L 11 L 160/88 H 03/07/20 08:00 59 L 12 03/07/20 07:30 53 L 4 L 03/07/20 07:00 50 L 0 L 03/07/20 06:45 54 L 4 L 03/07/20 04:00 36.7 C 51 L 17 148/88 H Pulse Ox 03/07/20 12:32 98 03/07/20 12:30 98 03/07/20 12:27 03/07/20 12:15 94 03/07/20 12:11 97 03/07/20 12:08 97 03/07/20 12:00 98 03/07/20 11:56 98 03/07/20 11:51 97 03/07/20 11:40 95 03/07/20 11:25 94 03/07/20 09:45 03/07/20 09:30 03/07/20 09:00 03/07/20 08:30 03/07/20 08:02 99 03/07/20 08:00 03/07/20 07:30 03/07/20 07:00 03/07/20 06:45 03/07/20 04:00 96 Laboratory Results Laboratory Results - last 24 hr 03/06/20 03/06/20 03/06/20 16:50 16:50 16:50 WBC 9.56 RBC 4.92 Hgb 15.1 Hct 43.4 MCV 88.2 MCH 30.7 MCHC 34.8 RDW Std Deviation 41.0 RDW Coeff of Jun 12.9 Plt Count 228 MPV 9.6 Immature Gran % (Auto) 0.3 Neut % (Auto) 54.9 Lymph % (Auto) 34.3 [place] % (Auto) 7.5 Eos % (Auto) 2.6 Baso % (Auto) 0.4 Neut # (Auto) 5.24 Lymph # (Auto) 3.28 [place] # (Auto) 0.72 H Eos # (Auto) 0.25 Baso # (Auto) 0.04 Immature Gran # (Auto) 0.03 H PT 10.7 INR 1.0 APTT 25.5 PTT Ratio 0.9 Activ Coag Time Kaolin Sodium 138 Potassium 3.9 Chloride 107 Carbon Dioxide 26 Anion Gap 6.0 BUN 18 Creatinine 1.42 H Est Cr Clr Drug Dosing 78.0 Est GFR ( Amer) 65.8 Est GFR (Non-Af Amer) 56.8 BUN/Creatinine Ratio 12.4 Glucose 100 H Estimat Average Glucose Hemoglobin A1c Calcium 8.9 Magnesium Total Bilirubin 0.4 AST 35 ALT 97 H Alkaline Phosphatase 66 Troponin I 0.045 Total Protein 7.9 Albumin 3.9 Globulin 4.0 Albumin/Globulin Ratio 1.0 Triglycerides Cholesterol LDL Cholesterol, Calc VLDL Cholesterol, Calc HDL Cholesterol Cholesterol/HDL Ratio Lipase 156 Nasal Screen MRSA (PCR) COVID-19 PCR SARS-CoV-2 RNA (RT-PCR) 03/06/20 03/06/20 03/06/20 18:00 19:50 Unknown WBC RBC Hgb Hct MCV MCH MCHC RDW Std Deviation RDW Coeff of Jun Plt Count MPV Immature Gran % (Auto) Neut % (Auto) Lymph % (Auto) [place] % (Auto) Eos % (Auto) Baso % (Auto) Neut # (Auto) Lymph # (Auto) [place] # (Auto) Eos # (Auto) Baso # (Auto) Immature Gran # (Auto) PT INR APTT PTT Ratio Activ Coag Time Kaolin Sodium Potassium Chloride Carbon Dioxide Anion Gap BUN Creatinine Est Cr Clr Drug Dosing Est GFR ( Amer) Est GFR (Non-Af Amer) BUN/Creatinine Ratio Glucose Estimat Average Glucose Hemoglobin A1c Calcium Magnesium Total Bilirubin AST ALT Alkaline Phosphatase Troponin I Total Protein Albumin Globulin Albumin/Globulin Ratio Triglycerides Cholesterol LDL Cholesterol, Calc VLDL Cholesterol, Calc HDL Cholesterol Cholesterol/HDL Ratio Lipase Nasal Screen MRSA (PCR) Negative COVID-19 PCR NEGATIVE SARS-CoV-2 RNA (RT-PCR) Cancelled 03/07/20 03/07/20 03/07/20 04:20 04:20 04:20 WBC 9.08 RBC 4.62 L Hgb 14.4 Hct 41.2 L MCV 89.2 MCH 31.2 MCHC 35.0 RDW Std Deviation 41.6 RDW Coeff of Jun 12.9 Plt Count 204 MPV 9.9 Immature Gran % (Auto) Neut % (Auto) Lymph % (Auto) [place] % (Auto) Eos % (Auto) Baso % (Auto) Neut # (Auto) Lymph # (Auto) [place] # (Auto) Eos # (Auto) Baso # (Auto) Immature Gran # (Auto) PT INR APTT PTT Ratio Activ Coag Time Kaolin Sodium 143 Potassium 4.2 Chloride 110 H Carbon Dioxide 29 Anion Gap 4.0 BUN 18 Creatinine 1.31 Est Cr Clr Drug Dosing 82.8 Est GFR ( Amer) 72.5 Est GFR (Non-Af Amer) 62.6 BUN/Creatinine Ratio 13.6 Glucose 93 Estimat Average Glucose 117 Hemoglobin A1c 5.7 H Calcium 8.6 Magnesium 2.4 Total Bilirubin 0.4 AST 28 ALT 83 H Alkaline Phosphatase 58 Troponin I < 0.015 Total Protein 7.0 Albumin 3.4 Globulin 3.6 Albumin/Globulin Ratio 0.9 Triglycerides 374 H Cholesterol 184 LDL Cholesterol, Calc 82 VLDL Cholesterol, Calc 75 HDL Cholesterol 27 Cholesterol/HDL Ratio 7 Lipase Nasal Screen MRSA (PCR) COVID-19 PCR SARS-CoV-2 RNA (RT-PCR) 03/07/20 11:07 WBC RBC Hgb Hct MCV MCH MCHC RDW Std Deviation RDW Coeff of Jun Plt Count MPV Immature Gran % (Auto) Neut % (Auto) Lymph % (Auto) [place] % (Auto) Eos % (Auto) Baso % (Auto) Neut # (Auto) Lymph # (Auto) [place] # (Auto) Eos # (Auto) Baso # (Auto) Immature Gran # (Auto) PT INR APTT PTT Ratio Activ Coag Time Kaolin 202 H Sodium Potassium Chloride Carbon Dioxide Anion Gap BUN Creatinine Est Cr Clr Drug Dosing Est GFR ( Amer) Est GFR (Non-Af Amer) BUN/Creatinine Ratio Glucose Estimat Average Glucose Hemoglobin A1c Calcium Magnesium Total Bilirubin AST ALT Alkaline Phosphatase Troponin I Total Protein Albumin Globulin Albumin/Globulin Ratio Triglycerides Cholesterol LDL Cholesterol, Calc VLDL Cholesterol, Calc HDL Cholesterol Cholesterol/HDL Ratio Lipase Nasal Screen MRSA (PCR) COVID-19 PCR SARS-CoV-2 RNA (RT-PCR) (1) HTN (hypertension) Hypertension type: essential hypertension Qualified Code(s): I10 - Essential (primary) hypertension
--- NOTE | 2020-03-07 12:50 | Electrocardiogram Report ---
Test Reason : Blood Pressure : / mmHG Vent. Rate : 064 BPM Atrial Rate : 064 BPM P-R Int : 164 ms QRS Dur : 094 ms QT Int : 392 ms P-R-T Axes : 020 078 031 degrees QTc Int : 404 ms Normal sinus rhythm Normal ECG No previous ECGs available Confirmed by Zeke Chin ([id number]) on 03/07/2020 12:49:47 PM Referred By: Cristopher Pham Confirmed By:Bogdan Chin
--- NOTE | 2020-03-07 12:51 | Electrocardiogram Report ---
Test Reason : Blood Pressure : / mmHG Vent. Rate : 051 BPM Atrial Rate : 051 BPM P-R Int : 184 ms QRS Dur : 090 ms QT Int : 420 ms P-R-T Axes : 039 002 050 degrees QTc Int : 387 ms Sinus bradycardia Otherwise normal ECG When compared with ECG of 06-MAR-2020 16:37, (unconfirmed) Questionable change in QRS axis Confirmed by Zeke Chin ([id number]) on 03/07/2020 12:51:14 PM Referred By: Cristopher Pham Confirmed By:Bogdan Chin
--- NOTE | 2020-03-07 12:59 | Electrocardiogram Report ---
Test Reason : Blood Pressure : / mmHG Vent. Rate : 056 BPM Atrial Rate : 056 BPM P-R Int : 180 ms QRS Dur : 086 ms QT Int : 390 ms P-R-T Axes : 022 -29 045 degrees QTc Int : 376 ms Sinus bradycardia Inferior infarct , age undetermined Abnormal ECG When compared with ECG of 07-MAR-2020 06:25, (unconfirmed) Inferior infarct is now Present Confirmed by Zeke Chin ([id number]) on 03/07/2020 12:58:59 PM Referred By: Cristopher Pham Confirmed By:Bogdan Chin
--- NOTE | 2020-03-07 13:58 | Cardiac Catheterization ---
Cardiac Cath Procedure Full Procedure Date March 07, 2020 Pre-Procedure Diagnosis Pre-Procedure Diagnosis: Acute Coronary Syndrome and Positive Stress Test AUC Score AUC Score: 8 Post-Procedure Diagnosis Post-Procedure Diagnosis: Severe CAD (Single-vessel) and Successful PCI Procedure(s) Performed Procedure(s) Performed: Drug Eluting Stent [employer] Systems Administrator Rene Rizzo MD [place] Up(s) Nils Estimated Blood Loss Estimated Blood Loss: <15cc Medication(s) Medication(s): Fentanyl (25 mcg IV), Heparin (5000 units IV), Nicardipine (250 mcg intra-arterial after arterial sheath insertion), Nitroglycerin and Versed (1 mg IV) Summary of Findings Impression: Right dominant coronary anatomy with single-vessel high-grade obstructive disease with complex 90% early mid LAD stenosis Coronary angiography Left main: Very Short and free of disease and calcification Left anterior descending: Type III in distribution giving rise to an early high diagonal branch, a large septal branch followed by a second diagonal branch at the end of its proximal third. Within the left understanding there is a discr ete ulcerated 90% stenosis between the first and second diagonal branch with a 50% narrowing between the septal branch and second. Left circumflex: Nondominant consisting of a large obtuse marginal small posterior lateral branch. There is mild to moderate luminal irregularities only Right coronary artery: Dominant distribution. It gives rise to a sinoatrial branch at its origin to right ventricular branches in its midportion at the AV groove along posterior descending artery and a single posterior ventricular branch. There is mild luminal irregularities. Overall caliber of right coronary distribution is modest but no obstruction noted. LV angiography: Not performed. Hemodynamics LV EDP 24 Hemodynamics Rest Ao:: 169/100/128 Final Ao: 149/88/117 LV: 147/1/24 Recommendations Recommendations: PCI without planned CABG Specimens Specimens: None Radiation Exposure (mGy) 1716 Contrast (mls) 63 Fluids (cc crystalloids) Fluids (cc crystalloids): 100 Drains Drains: None Anesthesia Moderate Procedural Complication(s) None Disposition PCU I attest to the content of the Intraoperative Record and any orders documented therein. Any exceptions are noted below. [facility] Data: Diving Instructor Cardiac Status Clinical evaluation leading to the procedure 49-year-old male with crescendo anginal symptoms leading to stress testing on 03/06/2020 with study demonstrating stress-induced ischemia in LAD distribution with exacerbation of typical anginal symptoms CAD Presenation: Stable angina Anginal Classification: CCS III Heart Failure: No Cardiogenic Shock within 24 Hours: No Cardiac Arrest within 24 Hours: No Imaging Studies Past 6 Months: Yes Stress Studies Past 6 Months: Yes Standard Exercise Test: No Stress Echocardiogram: Yes - Positive and Risk/Extent of Ischemia (LAD dist ribution) Stress Testing w/SPECT MPI: No Cardiac CTA: No Coronary Anatomy Dominant: Right Left Main (% Stenosis): Normal (Very short) LAD (% Stenosis): Mid (90% between first diagonal and first septal) D1 (% Stenosis): Normal D2 (% Stenosis): Normal Circumflex (% Stenosis): Proximal (Mild irregularities) OM1 (% Stenosis): Normal L PL1 (% Stenosis): Normal R PDA (% Stenosis): Mid (Mild irregularity) and Normal R PL1 (% Stenosis): Normal Left Ventricular Angiography EF (%): N/A Diagnostic Physicians Name: Rene Rizzo MD Status: Urgent Closure Device Percutaneous Entry Location: Radial Closure Device: Radial Band Recommendations: PCI without planned CABG
--- NOTE | 2020-03-07 18:46 | Hospitalist Progress Note ---
Date of Service March 07, 2020 Assessment & Plan (1) Coronary artery disease: (2) Abnormal stress echocardiography: (3) Crescendo angina: Per admitting service notes: This is a 49-year-old male who has significant past medical history of HTN, HLD and pre-DM who presents to ED at the referral of cardiology Dr. Pham due to abnormal stress echo. Status post cardiac cath 03/07/2020 Single-vessel CAD, drug-eluting stent placed to the LAD Patient placed on aspirin and Brilinta, Lipitor 80 mg daily Avapro increased to 300 mg daily Metoprolol 25 mg twice daily started Monitor closely overnight (4) HTN (hypertension): Irbesartan increased Monitor blood pressure (5) Elevated serum creatinine: unknown baseline bun/cr 18 and 1.42 on admission Creatinine now 1.31 Continue gentle fluids Repeat creatinine tomorrow (6) Prediabetes: Last A1C 5.8 02/27/2020 encourage lifestyle and diet modifications glucose 100, monitor fasting bsg (7) DVT prophylaxis: SCD/TEDS Disposition: Anticipate discharge home tomorrow Follow up: PCP Dr. Berry upon discharge Admission and Anticipated Discharge Date Admission Date: March 06, 2020 Subjective Follow-up for angina, abnormal stress test Seen resting in bed, comfortable, not in distress, good spirits Status post cardiac catheterization with drug-eluting stent placement States he feels fine overall No recurrence of chest pain, no shortness of breath, palpitations, dizziness, nausea vomiting No abdominal pain Denies any other symptoms Review of Systems Review of Systems: All systems reviewed & are unremarkable except as noted in HPI & below Physical Exam Physical Exam: General- oriented x 3, not in distress, speaks in sentences with no effort or accessory muscle use Head- atraumatic Eyes- PERRL, EOMI, anicteric ENT- oropharynx clear Neck- supple, no JVD, no adenopathy, no thyromegaly; carotids +2/2, no bruits appreciated Lungs- clear to auscultation bilaterally, no rales/wheezes Heart- normal rate, regular rhythm; no murmur, no gallop, no rub appreciated Abdomen- normal bowel sounds, nondistended, soft, nontender, no masses or hepatosplenomegaly Extremities- no pretibial edema, no calf tenderness; peripheral pulses intact Right wrist: Very minimal bleeding, no hematoma, edema, head swelling Neuro- alert, oriented x 3; CN 2-12 grossly intact; motor 5/5 bilaterally;sensation 100% on all extremities; no other gross focal neurologic deficits Skin- warm & dry Results & Data Results & Data ([facility] [place]) Vital Signs (Past 12 Hours) Vital Signs Temp Pulse Pulse Resp BP BP BP 03/07/20 16:00 56 L 03/07/20 15:22 36.9 C 18 133/85 03/07/20 15:00 55 L 03/07/20 13:20 55 L 16 03/07/20 13:11 64 17 136/93 03/07/20 13:10 61 23 03/07/20 13:00 61 19 03/07/20 12:56 66 18 146/96 H 03/07/20 12:50 64 17 03/07/20 12:42 65 29 H 139/94 03/07/20 12:40 64 19 03/07/20 12:32 60 16 165/96 H 03/07/20 12:30 62 13 03/07/20 12:27 66 20 165/96 H 03/07/20 12:15 65 20 03/07/20 12:11 64 16 129/88 03/07/20 12:08 36.9 C 136 H 18 136/85 03/07/20 12:00 56 L 13 03/07/20 11:56 59 L 19 136/85 03/07/20 11:51 58 L 19 137/85 03/07/20 11:40 56 L 18 03/07/20 11:25 54 L 18 140/81 03/07/20 09:45 55 L 18 03/07/20 09:30 53 L 14 03/07/20 09:00 57 L 17 03/07/20 08:30 61 11 L 03/07/20 08:02 59 L 11 L 160/88 H 03/07/20 08:00 59 L 12 03/07/20 07:30 53 L 4 L 03/07/20 07:00 50 L 0 L 03/07/20 06:45 54 L 4 L Pulse Ox 03/07/20 16:00 03/07/20 15:22 96 03/07/20 15:00 03/07/20 13:20 96 03/07/20 13:11 96 03/07/20 13:10 96 03/07/20 13:00 97 03/07/20 12:56 95 03/07/20 12:50 95 03/07/20 12:42 96 03/07/20 12:40 96 03/07/20 12:32 98 03/07/20 12:30 98 03/07/20 12:27 03/07/20 12:15 94 03/07/20 12:11 97 03/07/20 12:08 97 03/07/20 12:00 98 03/07/20 11:56 98 03/07/20 11:51 97 03/07/20 11:40 95 03/07/20 11:25 94 03/07/20 09:45 03/07/20 09:30 03/07/20 09:00 03/07/20 08:30 03/07/20 08:02 99 03/07/20 08:00 03/07/20 07:30 03/07/20 07:00 03/07/20 06:45 Laboratory Results Laboratory Results - last 24 hr 03/06/20 03/06/20 03/06/20 18:00 19:50 Unknown WBC RBC Hgb Hct MCV MCH MCHC RDW Std Deviation RDW Coeff of Jun Plt Count MPV Activ Coag Time Kaolin Sodium Potassium Chloride Carbon Dioxide Anion Gap BUN Creatinine Est Cr Clr Drug Dosing Est GFR ( Amer) Est GFR (Non-Af Amer) BUN/Creatinine Ratio Glucose Estimat Average Glucose Hemoglobin A1c Calcium Magnesium Total Bilirubin AST ALT Alkaline Phosphatase Troponin I Total Protein Albumin Globulin Albumin/Globulin Ratio Triglycerides Cholesterol LDL Cholesterol, Calc VLDL Cholesterol, Calc HDL Cholesterol Cholesterol/HDL Ratio Nasal Screen MRSA (PCR) Negative COVID-19 PCR NEGATIVE SARS-CoV-2 RNA (RT-PCR) Cancelled 03/07/20 03/07/20 03/07/20 04:20 04:20 04:20 WBC 9.08 RBC 4.62 L Hgb 14.4 Hct 41.2 L MCV 89.2 MCH 31.2 MCHC 35.0 RDW Std Deviation 41.6 RDW Coeff of Jun 12.9 Plt Count 204 MPV 9.9 Activ Coag Time Kaolin Sodium 143 Potassium 4.2 Chloride 110 H Carbon Dioxide 29 Anion Gap 4.0 BUN 18 Creatinine 1.31 Est Cr Clr Drug Dosing 82.8 Est GFR ( Amer) 72.5 Est GFR (Non-Af Amer) 62.6 BUN/Creatinine Ratio 13.6 Glucose 93 Estimat Average Glucose 117 Hemoglobin A1c 5.7 H Calcium 8.6 Magnesium 2.4 Total Bilirubin 0.4 AST 28 ALT 83 H Alkaline Phosphatase 58 Troponin I < 0.015 Total Protein 7.0 Albumin 3.4 Globulin 3.6 Albumin/Globulin Ratio 0.9 Triglycerides 374 H Cholesterol 184 LDL Cholesterol, Calc 82 VLDL Cholesterol, Calc 75 HDL Cholesterol 27 Cholesterol/HDL Ratio 7 Nasal Screen MRSA (PCR) COVID-19 PCR SARS-CoV-2 RNA (RT-PCR) 03/07/20 11:07 WBC RBC Hgb Hct MCV MCH MCHC RDW Std Deviation RDW Coeff of Jun Plt Count MPV Activ Coag Time Kaolin 202 H Sodium Potassium Chloride Carbon Dioxide Anion Gap BUN Creatinine Est Cr Clr Drug Dosing Est GFR ( Amer) Est GFR (Non-Af Amer) BUN/Creatinine Ratio Glucose Estimat Average Glucose Hemoglobin A1c Calcium Magnesium Total Bilirubin AST ALT Alkaline Phosphatase Troponin I Total Protein Albumin Globulin Albumin/Globulin Ratio Triglycerides Cholesterol LDL Cholesterol, Calc VLDL Cholesterol, Calc HDL Cholesterol Cholesterol/HDL Ratio Nasal Screen MRSA (PCR) COVID-19 PCR SARS-CoV-2 RNA (RT-PCR) (1) HTN (hypertension) Hypertension type: essential hypertension Qualified Code(s): I10 - Essential (primary) hypertension
[2020-03-07] MEDS: TICAGRELOR 90 MG TAB PO SCH (20:32)
[2020-03-08 07:28] LABS: BUN Creatinine Ratio 12.2 (10-20); Calcium 8.8 mg/dl (8.5-10.1); Creatinine Clr Calc Pharmacy 81.6 ml/min; Est GFR (Non-African American) 60.4; Potassium 4.1 mmol/L (3.5-5.1)
[2020-03-08] MEDS: METOPROLOL TARTRATE 25 MG TAB PO SCH (07:48)
[2020-03-08] MEDS: TICAGRELOR 90 MG TAB PO SCH (07:48)
[2020-03-08] MEDS: ASPIRIN 81 MG ECTAB PO SCH (07:49)
[2020-03-08] MEDS: ATORVASTATIN 40 MG TAB PO SCH (07:49)
[2020-03-08] MEDS: PANTOprazole 40 MG TAB PO SCH (07:50)
[2020-03-08] MEDS ORDERED: IRBESARTAN 150 MG TAB PO SCH (09:00)
--- NOTE | 2020-03-08 12:51 | Hospitalist Progress Note ---
Date of Service March 08, 2020 Assessment & Plan (1) Coronary artery disease: (2) Abnormal stress echocardiography: (3) Crescendo angina: Per admitting service notes: This is a 49-year-old male who has significant past medical history of HTN, HLD and pre-DM who presents to ED at the referral of cardiology Dr. Pham due to abnormal stress echo. Status post cardiac cath 03/07/2020 Single-vessel CAD, drug-eluting stent placed to the LAD Patient placed on aspirin and Brilinta, Lipitor 80 mg daily Avapro increased to 300 mg daily Metoprolol 25 mg twice daily started Stable overall Cleared for discharge per cardiology service Follow-up with caramel coloring operator in 4 weeks (4) HTN (hypertension): Irbesartan increased Pressure improved (5) Elevated serum creatinine: unknown baseline bun/cr 18 and 1.42 on admission Creatinine now 1.31 Given gentle IV fluids Creatinine back to baseline (6) Prediabetes: Last A1C 5.8 02/27/2020 encourage lifestyle and diet modifications (7) DVT prophylaxis: SCD/TEDS Disposition: Anticipate discharge home tomorrow Follow up: PCP Dr. Berry in 1 week Follow-up with caramel coloring operator in 4 weeks Admission and Anticipated Discharge Date Admission Date: March 06, 2020 Subjective Follow-up for coronary disease, status post stent placement Seen sitting up in bed, comfortable, watching TV Good spirits States he feels fine overall No recurrence of chest pain, no shortness of breath, palpitations, dizziness, weakness, ambulating the hallways with no problems States he is ready like to be discharged today Review of Systems Review of Systems: All systems reviewed & are unremarkable except as noted in HPI & below Physical Exam Physical Exam: General- oriented x 3, not in distress, speaks in sentences with no effort or accessory muscle use Eyes- anicteric Neck- no JVD Lungs- clear breath sounds bilaterally, no rales/wheezes Heart- normal rate, regular rhythm; no murmurs Abdomen- normal bowel sounds, nondistended, soft, nontender Extremities- no pretibial edema, no calf tenderness Neuro- alert, oriented x 3; no gross focal neurologic deficits Skin- warm & dry Results & Data Results & Data ([facility]) Vital Signs (Past 12 Hours) Vital Signs Temp Pulse Resp BP Pulse Ox 03/08/20 12:40 36.7 C 57 L 17 129/87 95 03/08/20 11:45 36.7 C 57 L 17 129/87 95 03/08/20 07:40 36.9 C 52 L 17 139/89 95 03/08/20 04:00 36.6 C 61 16 146/77 H 97 Laboratory Results Laboratory Results - last 24 hr 03/08/20 06:43 Sodium 141 Potassium 4.1 Chloride 110 H Carbon Dioxide 25 Anion Gap 6.0 BUN 16 Creatinine 1.35 Est Cr Clr Drug Dosing 81.6 Est GFR ( Amer) 70.0 Est GFR (Non-Af Amer) 60.4 BUN/Creatinine Ratio 12.2 Glucose 107 H Calcium 8.8 (1) HTN (hypertension) Hypertension type: essential hypertension Qualified Code(s): I10 - Essential (primary) hypertension
--- NOTE | 2020-03-08 13:18 | Cardiology Progress Note ---
Date of Service March 08, 2020 Assessment & Plan (1) Single vessel coronary disease: Status post drug-eluting stent to left anterior descending with excellent initial result Dual antiplatelet therapy initiated with aspirin and Brilinta Would continue low-dose beta-esme Increase Avapro to 300 mg p.o. daily for further hypertension control Low HDL dyslipidemia present with treat with high-dose statin Discontinue tobacco use Okay to discharge to home from a cardiac standpoint. Discussed activity status post PCI, patient declining cardiac rehab, would prefer to exercise on his own. Restrictions reviewed in great detail. Will be discharged home on current medical regimen. My office will call to arrange follow-up with me in the next 2 to 4 weeks We will also need follow-up with his PCP. (2) Abnormal stress echocardiography: (3) Crescendo angina: (4) HTN (hypertension): (5) Prediabetes: Please see outpatient consult on chart for Dr. Pham. Patient referred with symptoms consistent with crescendo angina and abnormal stress testing. Currently asymptomatic at rest and no prior rest symptom . EKG normal Plan: Patient scheduled for diagnostic cardiac catheterization in a.m. Aspirin administered. Procedure and risks explained in detail to the patient informed consent will be obtained. IV hydration ordered to be given at midnight Subjective Patient seen and examined, chart reviewed. States he feels well with no events overnight. Denies any further chest pain, shortness of breath, palpitations, lightheadedness, dizziness or syncope. Tolerated PCI well. Telemetry reviewed: Normal sinus rhythm without arrhythmia or significant ectopy. Review of Systems Review of Systems: All systems reviewed & are unremarkable except as noted in HPI & below Physical Exam Physical Exam: General: Awake, alert and oriented x 3. No acute distress. HEENT: Normocephalic, atraumatic. Pupils equal, round and reactive to light and accommodation. Extraocular muscles are intact. Anicteric sclera. Moist mucous membranes. Neck: No JVD. No bruit. Cardiovascular: Regular. Positive S-4. Normal S-1 and S-2. No S-3. No murmurs or rubs. Pulmonary: Clear to auscultation B/L. No rales, rhonchi or wheezing Abdomen: Bowel sounds x 4, soft. No rebound, guarding or tenderness. No organomegaly. Extremities: No clubbing, cyanosis or edema. +2 pedal pulses bilaterally. Skin: Warm and dry. Results & Data Vital Signs (Past 12 Hours) Vital Signs Temp Pulse Resp BP Pulse Ox 03/08/20 12:40 36.7 C 57 L 17 129/87 95 03/08/20 11:45 36.7 C 57 L 17 129/87 95 03/08/20 07:40 36.9 C 52 L 17 139/89 95 03/08/20 04:00 36.6 C 61 16 146/77 H 97 (1) HTN (hypertension) Hypertension type: essential hypertension Qualified Code(s): I10 - Essential (primary) hypertension
--- NOTE | 2020-03-08 20:27 | Discharge Summary ---
Date of Service March 08, 2020 Admission HPI Per Admitting Provider This is a 49-year-old male who has significant past medical history of HTN, HLD and pre-DM who presents to ED at the referral of cardiology Dr. Pham due to abnormal stress echo. Patient was seen and evaluated in cardiology clinic today and underwent stress testing. He developed anginal symptoms at 4 minutes Sorin protocol and echocardiogram revealed ischemia in LAD territory. He was referred to ED for admission for planned cardiac catheterization in a.m. for diagnostic purposes. He states over the last 3 to 4 weeks he has noticed exertional chest discomfort and shortness of breath. Chest discomfort is substernal, nonradiating, resolves with rest within approximately 10 minutes, made worse with exertion. He states last week he was golfing and even used a golf cart and even minimal exertion on the golf course caused him to feel discomfort. Positive family history of hypertension but denies any premature coronary artery disease for heart disease in family. He currently denies any fever, chills, sw eats, lightheadedness, dizziness, syncope, chest pain, shortness, palpitations, nausea, vomiting, abdominal pain, change in bowel or urinary habits. He denies any known exposure to COVID-19 denies any loss of taste or smell. His fiance is at bedside. They were to get in 1 week in [place]. In ED patient remained hemodynamically stable. EKG was without ischemic change. Blood pressure 155/84. CBC relatively unremarkable, CMP revealed mildly elevated creatinine 1.42, glucose 100, ALT 97, troponin detectable at 0.045. Chest x-ray with no acute abnormality. He did receive ASA 325 in ED. Admission Exam Per Admitting Provider Constitutional: WD/WN, vitals as above, NAD, sitting up in bed, pleasant, conversing easily Head: Normocephalic, Atraumatic Eyes: PERRL, conjunctivae normal, anicteric sclerae ENMT: external ear and nose normal, oropharynx normal Neck: trachea midline, no thyromegaly normal visual inspection Respiratory: normal respiratory effort, lungs clear to auscultation, no wheeze, rales, rhonchi. Normal insp/exp effort, no accessory muscle use Cardiovascular: RRR, no murmur, no edema Vessels: no JVD or carotid bruit Chest: normal inspection of chest Abdomen: normal bowel sounds, soft, nontender, no hepatosplenomegaly Musculoskeletal: no cyanosis or clubbing, extremities motor strength 5/5 Skin: no rashes, warm and dry normal turgor Neurologic: PERRL, EOMI, accommodation nl, no face palsy, no dysarthria CN's II-XI intact bilaterally and moves all extremities Psychiatric: A+Ox3, euthymic affect Lymphatic: no cervical or axillary lymphadenopathy : deferred Principal Diagnosis Single vessel coronary disease: Status post drug-eluting stent to left anterior descending Discharge Exam General- oriented x 3, not in distress, speaks in sentences with no effort or accessory muscle use Eyes- anicteric Neck- no JVD Lungs- clear breath sounds bilaterally, no rales/wheezes Heart- normal rate, regular rhythm; no murmurs Abdomen- normal bowel sounds, nondistended, soft, nontender Extremities- no pretibial edema, no calf tenderness Neuro- alert, oriented x 3; no gross focal neurologic deficits Skin- warm & dry Discharge Data Allergies Allergy/AdvReac Type Severity Reaction Status Date / Time Tetanus Vaccines and Toxoid AdvReac redness Verified 03/06/20 17:55 Consultations 03/06/20 17:13 ED Decision to Admit Stat 03/06/20 17:28 Consult Cardiology Routine 03/07/20 11:32 Consult Cardiac Rehabilitation Routine Procedures Performed Operation Date: 03/07/20 10:00 Actual Procedures p Cath, Left with Cors and Vent - Rene Rizzo MD s Cineradiography w/Routine Exam - Bennett De Oliveira MD s Drug Eluting Stent SGl Vessel - Bennett De Oliveira MD Ordered Studies 03/07/20 09:29 CL Cath Imgs for PACS use only Routine Hospital Course (1) Coronary artery disease: (2) Abnormal stress echocardiography: (3) Crescendo angina: Per admitting service notes: This is a 49-year-old male who has significant past medical history of HTN, HLD and pre-DM who presents to ED at the referral of cardiology Dr. Pham due to abnormal stress echo. Status post cardiac cath 03/07/2020 Single-vessel CAD, drug-eluting stent placed to the LAD Patient placed on aspirin and Brilinta, Lipitor 80 mg daily Avapro increased to 300 mg daily Metoprolol 25 mg twice daily started Stable overall Cleared for discharge per cardiology service Ff up with PCP in 1 week Follow-up with digital marketing executive in 4 weeks (4) HTN (hypertension): Irbesartan increased Blood Pressure improved monitor as outpatient (5) Elevated serum creatinine: unknown baseline bun/cr 18 and 1.42 on admission Creatinine back to baseline after IV fluids given (6) Prediabetes: Last A1C 5.8 02/27/2020 encouraged lifestyle and diet modifications (7) DVT prophylaxis: SCD/TEDS Disposition: D/C home Follow up: PCP Dr. Pereira in 1 week Follow-up with digital marketing executive in 4 weeks Total Time Total Time Spent Total Time Spent (In Minutes): 45 minutes Discharge Plan Discharge Items Patient Disposition: Home - Self-Care Reason For Visit: ABNORMAL STRESS TEST Discharge Diagnosis: Coronary Artery Disease, s/p Drug Eluting Stent Placement Activity: Resume your previous activity Activity Comment: Gradually as tolerated, no heavy exertion Lifting: Wait until after follow-up appointment Exercise/Sports: Wait until after follow-up appointment Driving/Machine Use: Resume 1 day after discharge Non-emergency contact: Primary Care Provider Call non-emergency contact if: you have any medication questions, you have a fever, your wound has increased redness, your wound has increased drainage and your wound pain has increased Follow-up/Referrals: Cristopher Pham DO [Primary Care Provider] - Diet: Heart Healthy Addtl Attending Provider Instructions: PLEASE REVIEW YOUR NEW MEDICATION LIST AND FOLLOW INSTRUCTIONS CAREFULLY. NITROGLYCERIN: PLACE 1 TABLET UNDER THE TONGUE IMMEDIATELY NEEDED FOR CHEST PAIN. IF WITH NO RELIEF AFTER 3 MINUTES, CALL [id number]. CALL PRIMARY CARE PHYSICIAN OR RETURN TO THE ER IMMEDIATELY IF WITH DIZZINESS, SHORTNESS OF BREATH, PALPITATIONS. FOLLOW UP WITH DR. PEREIRA ON THURSDAY MARCH 12, 2020. FOLLOW UP WITH [facility] PHONE SCREENER SCHEDULED. Pending Studies at Discharge: No Stand-Alone Forms: My Transif[employer], Smoking Cessation Medications and DC Order Prescriptions: New Brilinta 90 mg Tablet 90 mg PO BID Qty: 60 RF: 2 atorvastatin 40 mg Tablet 80 mg PO QAM Qty: 60 RF: 2 aspirin 81 mg Tablet,Delayed Release (Dr/Ec) 81 mg PO QAM Qty: 30 RF: 2 irbesartan 150 mg Tablet 300 mg PO DAILY Qty: 60 RF: 2 metoprolol tartrate 25 mg Tablet 25 mg PO BID Qty: 60 RF: 2 nitroglycerin [Nitrostat] 0.4 mg Tablet, Sublingual 0.4 mg sublingual UD PRN (Reason: chest pain) Qty: 10 RF: 2 Continued omeprazole 20 mg Capsule,Delayed Release(Dr/Ec) 20 mg PO QAM RF: 0 ascorbic acid (vitamin C) [Vitamin C] 500 mg Tablet,Chewable 500 mg PO QAM RF: 0 multivitamin Tablet,Chewable 1 tab PO QAM RF: 0 Discontinued irbesartan 150 mg Tablet 150 mg PO QAM RF: 0 Discharge Orders: Discharge Order (Routine); Ordered 03/08/20 Ordered By: Go Poon Admission Data Admit Date/Time: 03/06/20 17:28 Attending Provider: Go Poon Admit Provider: Sang Dougherty Primary Care Provider: Cristopher Pham Other Providers: Sang Dougherty ; Rene Rizzo Other Interventions: Discharge Summary Assessment (RN) Last Done: 03/08/20 12:40 DC Date/Time DO NOT enter until pt leaves facility: 03/08/20 14:10
== END 2020-03-08 14:10 | disposition home or self-care (01) | DRG 247 ==
LOC: ED 16:24 → 1E 17:28 → SUATTDRO 17:28 → 1E 19:12 → 2S 03-07 15:13